=== PATIENT | male | born 1995 | race Caucasian/White ===

== ENCOUNTER 2016-05-27 22:27 | Emergency (ER) | payer SELFPAY ==
[2016-05-27] MEDS ORDERED: DIPHENHYDRAMINE HCL 50 MG CAPSULE PO ONE (23:07)
[2016-05-27] MEDS ORDERED: PROCHLORPERAZINE MALEATE 10 MG TABLET PO ONE (23:07)
[2016-05-27] MEDS ORDERED: IBUPROFEN 800 MG TABLET PO ONE (23:07)
--- NOTE | 2016-05-27 23:08 | ER Document Report ---
ED Medical Screen (RME) - General Chief Complaint: Headache Stated Complaint: HEAD PAIN Time seen by provider: 23:06 Mode of Arrival: Ambulatory Information source: Patient Notes: 20-year-old male presents to ED for headache. He states he came home around 5 PM from work with a headache took some Tylenol hot shower lay down into another hot shower with no relief from the pain. States he has no history of headaches no injuries pain is sharp and throbbing. He denies drinking or drugs states he does smoke a pack a day. I have greeted and performed a rapid initial assessment of this patient. A comprehensive ED assessment and evaluation of the patient, analysis of test results and completion of medical decision making process will be conducted by an additional ED providers.
[2016-05-28 00:52] VITALS: BP 126/73
== END 2016-05-28 02:57 | disposition left against medical advice (07) ==
LOC: ER 22:27
DX: R51 Headache (principal); Z53.20 Procedure and treatment not carried out because of patient's decision for unspecified reasons; F17.200 Nicotine dependence, unspecified, uncomplicated
CPT/HCPCS: 99281; S0183